=== PATIENT | male | born 1950 | race Caucasian/White ===

== ENCOUNTER 2022-06-13 06:00 | Day surgery (SDC) | payer MEDICARE, OTHER ==
[2022-06-13] MEDS ORDERED: Lactated Ringers 1,000 ML IV SCH (06:30)
[2022-06-13 06:58] LABS: COVID AG -BINAX NOW RAPID TEST NEGATIVE (NEGATIVE)
[2022-06-13] MEDS ORDERED: DIPRIVAN 200 MG/20 ML IV ONE (07:17)
[2022-06-13] MEDS ORDERED: Xylocaine-Mpf 2% 5 Ml Vial ONE (07:17)
[2022-06-13] MEDS ORDERED: Versed 2 MG/2 ML Injection ONE (07:27)
[2022-06-13 08:29] VITALS: BP 113/64; PULSE 75; O2SAT 96
--- NOTE | 2022-06-13 08:57 | OP ---
SURGERY DATE/TIME: 06/13/2022 0756 PREOPERATIVE DIAGNOSIS: Screening exam. POSTOPERATIVE DIAGNOSIS: Sigmoid diverticulosis otherwise normal colon. PROCEDURE: Colonoscopy. SURGEON: Dr. Ronald Anaya. ANESTHESIA: MAC. Medications given by anesthesia department. HISTORY: The patient is a 72-year-old white male patient presenting now for screening colonoscopy. The patient was appraised of the risks of the procedure including the risk of perforation, phlebitis, untoward reaction to medication, bleeding and missed lesions. The patient verbalized his understanding and desired to have the procedure performed. DESCRIPTION OF PROCEDURE: The patient was given the medications by the anesthesia department. He had continuous pulse oximetry, ECG monitoring, intermittent blood pressure monitoring during the examination. He was placed in the left lateral decubitus position. A digital rectal examination was performed and revealed normal anal sphincter tone, no masses. The flexible Olympus pediatric colonoscope was used to intubate the rectum. A view of the colon was developed sequentially to the cecum. Upon insertion and withdrawal, including a retroflex view in the rectum was noted moderate sigmoid diverticulosis otherwise no mucosal lesions were encountered. The scope was removed from the patient who tolerated the procedure well and was sent back to OP recovery in good condition. The prep was noted to be fair to good.
== END 2022-06-13 08:38 | disposition home or self-care (01) ==
LOC: SDC 06:00
PROVIDERS: ATTEND Family Medicine
DX: Z12.11 Encounter for screening for malignant neoplasm of colon (principal); K57.30 Diverticulosis of large intestine without perforation or abscess without bleeding
CPT/HCPCS: 87811; G0121; 99100; J2250; J2704